=== PATIENT | male | born 1960 ===

== ENCOUNTER 2020-09-28 07:48 | Day surgery (SDC) | payer OTHER ==
[~2020-09-28] VITALS: Ht 175.3 cm; Wt 88.0 kg
[2020-09-28] VITALS (10 sets, daily range): BP systolic 127–159; BP diastolic 86–100; PULSE 18–81; TEMP 97.4–97.9
--- NOTE | 2020-09-28 13:15 | NUR ---
PATIENT ADMITED INTO ROOM 322 POST OP. ORIENTED BUT VERY DROWSY. NOTED ELEVATED B/P OF 159/100. PACU REPORTED NOTED HTN AND WAS CLEARED TO MOVE PATIENT TO FLOOR. ALL OTHER VSS. DENIES PAIN. FERNANDEZ TO DD WITH CBI INFUSING SLOW. URINE IS LIGHT PINK. IV FLUIDS INFUSING INTO LEFT FORARM IV SITE. NO C/O N/V. HEAD TO TOE ASSESSMENT COMPLETE. ORIENTED TO ROOM. AT BEDSIDE. CALL LIGHT IN REACH.
--- NOTE | 2020-09-28 14:00 | NUR ---
PATIENT RESTING QUIETLY WITH NO NEEDS. AT BEDSIDE.
--- NOTE | 2020-09-28 16:30 | NUR ---
PATIENT DOING WELL. VSS. B/P HAS DECREASED AND IS NOW IN THE 140'S SYSTOLIC WITH A DIASTOLIC UNDER 100. ALL OTHER VSS. URINE IS LIGHT PINK WITH SOME TISSUE CLOTS NOTED. CBI INFUSING AT MOD RATE TO KEEP CLEAR AND FREE FLOWING. NO C/O PAIN OR NAUSEA. IV FLUIDS INFUSING VIA PUMP INTO LEFT FORARM IV. PATIENT LOOKING AT MENU. NO OTHER NEEDS. CALL LIGHT IN REACH.
--- NOTE | 2020-09-28 21:00 | NUR ---
Patient resting in bed. No complaints of pain. CBI running moderate draining light pink. Fluids infusing to IV in left forearm. Patient drinking plenty of fluids. He is passing gas. Patient refusing to wear SCDs, but moving around frequently. PAtient walked to bathroom, but did not go. No other needs at this time. Call light in reach.
[2020-09-29 00:03] VITALS: BP 178/103; PULSE 81; TEMP 98.3
--- NOTE | 2020-09-29 00:26 | NUR ---
Patient's blood pressure is elevated. Capped fluids.
[2020-09-29 02:17] VITALS: BP 154/102
--- NOTE | 2020-09-29 02:28 | NUR ---
Patient's blood pressure is down to 154/103. PAtient complaining of bladder spasms. B&O suppository administered.
[2020-09-29 03:55] VITALS: BP 157/90; PULSE 77; TEMP 97
--- NOTE | 2020-09-29 06:31 | NUR ---
Patient doing well this morning. CBI running moderately draining clear pink with occasional clots. Will report off to day shift.
--- NOTE | 2020-09-29 07:40 | NUR ---
Patient states he is having bladder spasms, B&O suppository given per orders. Patient alert and oriented x 3. Assessment complete. Brink to DD with pink urine present, occassional small clots noted in tubing, CBI infusing at slow rate, CBI clamped at this time. Denies further needs at this time.
[2020-09-29 07:48] VITALS: BP 149/87; PULSE 75; TEMP 98.3
--- NOTE | 2020-09-29 10:00 | NUR ---
Patient primed and pulled per orders. Tolerated procedure well. Denies needs at this time.
[2020-09-29 11:13] VITALS: BP 136/86; PULSE 82; TEMP 97.5
--- NOTE | 2020-09-29 11:30 | NUR ---
Patient up independently in room. Voiding small amounts of clear pink urine.
--- NOTE | 2020-09-29 13:20 | NUR ---
Patient doing well, completed 6 cup routine. Voiding without difficulties, voiding clear pink urine. Encouraged increase fluid intake. Discharge education provided to patient and spouse. Educated on when to call provider and scheduling follow up appointment. All questions answered. Denies further needs at this time. Patient out by wheelchair with family and surgical staff.
== END 2020-09-29 13:20 | disposition home or self-care (01) ==
LOC: SDCO → SURG 13:15 → SDCO 09-29 13:20
DX: D09.0 Carcinoma in situ of bladder (principal); C67.1 Malignant neoplasm of dome of bladder; C67.2 Malignant neoplasm of lateral wall of bladder; I10 Essential (primary) hypertension; E87.6 Hypokalemia; M54.2 Cervicalgia; F17.290 Nicotine dependence, other tobacco product, uncomplicated; G47.33 Obstructive sleep apnea (adult) (pediatric); Z99.89 Dependence on other enabling machines and devices; Z20.822 Contact with and (suspected) exposure to COVID-19
CPT/HCPCS: OP; J0360; J0690; J1100; J1170; J2405; J2704; J3010; J3480; J7120

== ENCOUNTER 2021-01-30 08:53 | Day surgery (SDC) | payer OTHER ==
[~2021-01-30] VITALS: Ht 175.3 cm; Wt 87.3 kg
[2021-01-30] VITALS (7 sets, daily range): BP systolic 128–168; BP diastolic 82–97; PULSE 63–77; TEMP 97–98.1
[2021-01-30] MEDS ORDERED: LAMISIL250 M1 PO (09:53)
[2021-01-30] MEDS ORDERED: NORVASC 5MG5 MG/TAB PO (09:58)
[2021-01-30] MEDS ORDERED: MULTIPLE VITAMI1 TA5 PO (09:59)
--- NOTE | 2021-01-30 12:52 | NUR ---
PT UP TO FLOOR PER BED WITH REPORT FROM [facility] PACU @0070. PT IS A/O X3, LUNGS CTA, BOWEL SOUNDS PRESENT. PT HAS VOIDED X2 PER REPORT. SECOND VOID WITH SM CLOTS VISIBLE PER MEDICAL DOCTOR NUCLEAR MEDICINE. VSS, ASSESSMENTS COMPLETE. IV TO GRAVITY AT THIS TIME. PO INTAKE ENCOURAGED. PT'S KAMAR AT BEDSIDE. DISCHARGE ORDERS RECIEVED POST OP. WILL DISCHARGE WHEN CRITERIA MET.
--- NOTE | 2021-01-30 13:06 | NUR ---
PT ORDERING LUNCH. REVIEWED DISCHARGE CRITERIA WITH PT AND , BOTHE VERBALIZED UNDERSTANDING.
--- NOTE | 2021-01-30 15:17 | NUR ---
PT MET DISCHARGE CRITERIA, EATING, DRINKING, VOIDING AMBULATING TO AND FROM BR. PT VERBALIZED DESIRE TO GO HOME. DISCHARGE INSTRUCTIONS REVIEWED WITH PT AND . QUESTIONS ANSWERED. PT TAKEN TO FRONT VIA WC.
== END 2021-01-30 15:21 | disposition home or self-care (01) ==
LOC: SDCO 08:53 → SURG 12:40 → SDCO 15:21
DX: D09.0 Carcinoma in situ of bladder (principal); I10 Essential (primary) hypertension; G47.33 Obstructive sleep apnea (adult) (pediatric); F17.290 Nicotine dependence, other tobacco product, uncomplicated; Z79.899 Other long term (current) drug therapy
CPT/HCPCS: OP; J0360; J0690; J1885; J2405; J2704; J7120